=== PATIENT | female | born 1950 | race Caucasian/White ===

== ENCOUNTER → 2017-03-20 | Day surgery (SDC) | payer OTHER ==
--- NOTE | 2017-03-19 19:43 | History & Physical Pre-Op ---
General Information and HPI History of Present Illness: This patient is a 67-year-old 3 para 3 postmenopausal with known fibroid uterus and now has postmenopausal bleeding. She is admitted today for D&C hysteroscopy. Allergies/Medications Allergies: Coded Allergies: No Known Allergies (03/19/17) Past History Surgical History Pertinent Surgical History: non-contributory Review of Systems Review of Systems Constitutional: Reports: no symptoms. EENTM: Reports: no symptoms. Cardiovascular: Reports: no symptoms. Respiratory: Reports: no symptoms. GI: Reports: no symptoms. Genitourinary: Reports: see HPI. Musculoskeletal: Reports: no symptoms. Skin: Reports: no symptoms. Neurological/Psychological: Reports: no symptoms. Hematologic/Endocrine: Reports: no symptoms. Immunologic/Allergic: Reports: no symptoms. All Other Systems: Reviewed and Negative Exam & Diagnostic Data Last 24 Hrs of Vital Signs/I&O Intake & Output 03/19 1600 03/19 0800 03/19 0000 Intake Total Output Total Balance Patient 170 lb Weight Physical Exam: HEENT: Normocephalic atraumatic Neck: No JVD no thyromegaly Chest: Clear to auscultation bilaterally Cardiovascular: Normal S1, S2 Abdomen: Nondistended no masses Pelvic: Deferred OR Extremities no: No clubbing cyanosis or edema Assessment/Plan Assessment/Plan: Postmenopausal bleeding with fibroid uterus Plan: D&C hysteroscopy As Ranked By This Provider Problem List: 1. Postmenopausal bleeding
[~2017-03-20] VITALS: Ht 154.9 cm; Wt 77.1 kg
--- NOTE | 2017-03-21 14:03 | Operative Report ---
Operative/Inv Procedure Report Surgery Date: 03/20/17 Name of Procedure: D&C hysteroscopy Pre-Operative Diagnosis: Fibroid uterus Post-Operative Diagnosis: Endometrial polyps Estimated Blood Loss: scant Surgeon/Separator Inserter: Andrea Oviedo MD Anesthesia: moderate sedation Operative/Procedure Note Note: The patient is brought to the operating room and placed on the OR table in dorsal supine position. She was given adequate anesthesia and repositioned in a modified dorsal lithotomy. She was prepped and draped in usual sterile fashion. A weighted speculum was inserted into the vagina and with the [place] retractor single-tooth tenaculum was attached to the anterior lip of the cervix. The cervix was then injected with to have cc of 1% lidocaine with epinephrine and each quadrant. An endocervical curettage was performed. The uterus is then sounded to 6 cm. The cervix was dilated to accommodate the hysteroscope hysteroscope was passed into the fundus and the saline was activated. 3 endometrial polyps were noted. Hysteroscope was removed and the cervix was further dilated. The polyp forceps were used to remove the 3 polyps without problem. An endometrial curettage was then performed. Hemostasis was good the isthmus removed the patient was awakened and sent to recovery in good condition. All needle, sponge, and instrument counts were correct at the end of procedure 2.
== END ==
LOC: STS 04:10
DX: D25.9 Leiomyoma of uterus, unspecified (principal); N85.8 Other specified noninflammatory disorders of uterus; N95.0 Postmenopausal bleeding; E11.9 Type 2 diabetes mellitus without complications; Z79.84 Long term (current) use of oral hypoglycemic drugs; K21.9 Gastro-esophageal reflux disease without esophagitis
CPT/HCPCS: 88305; J2250